=== PATIENT | male | born 1985 | race Caucasian/White ===

== ENCOUNTER 2024-12-07 10:45 | Outpatient (AMB) | payer OTHER, SELFPAY ==
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
[2024-12-07 10:59] VITALS: BP 100/68; PULSE 97; TEMP 36.6; O2SAT 98; BMI 33.2
--- OUTSIDE RECORDS SUMMARY | 2024-12-07 12:48 | XMS_ITS | Clinical Summary ---
Author Organization [employer] [facility] [address] Address [address] [place] [address] Phone Care Team Providers Care Inspector Floor Sub Assembly Name Role Phone Anisa Hazel MD Primary Care Prov ider Allergies No known active allergies Medications Trulicity 1.5 mg/0.5 mL pen injector injection ADMINISTER 1.5 MG UNDER THE SKIN EVERY WEEK 2 Active glipiZIDE (GLUCOTROL) 10 mg tablet 2 Active metFORMIN (GLUCOPHAGE) 850 mg tablet Take 1 tablet (850 mg total) by mouth 2 (two) times a day. 2 Active Surgical History Surgery Date Site/Laterality Comments CARPAL TUNNEL RELEASE 08/12/2013 - 08/11/2014 Left Medical History Medical History Date Comments Hypertension Diabetes mellitus ([facility] V24, [facility] V28) Social History Tobacco Use Types Packs/Day Years Used Date Smoking Tobacco: Never Smokeless Tobacco: Never Tobacco Cessation:Counseling Given: Not Answered Alcohol Use Standard Drinks/Week Comments Never 0 (1 standard drink = 0.6 oz pur e alcohol) Sex and Gender Information Value Date Recorded Sex Assigned at Not on file Legal Sex Male 10:21 PM EST Gender Identity Not on file Sexual Orientation Not on file Obstetrics History Last Filed Vital Signs Vital Sign Reading Time Taken Comments Blood Pressure - - Pulse - - Temperature - - Respiratory Rate 16 09/13/2022 10:12 AM EST Oxygen Saturation - - Inhaled Oxygen Concentration - - Weight 102 kg (225 lb) 09/13/2022 10:12 AM EST Height 170.2 cm (5' 7 ) 09/13/2022 10:12 AM EST Body Mass Index 35.24 09/13/2022 10:12 AM EST Plan of Treatment Health Maintenance Due Date Last Done Comments Pneumococcal Vaccine: Pediatrics (0 to 5 Years) and At-Risk Patients (6 to 64 Years) (1 of 2 - PCV) 2002 Cholesterol Screening (Lipid Panel) 07/14/2022 Depression Screening 07/14/2022 HIV Screening 07/14/2022 Hepatitis C Screening 07/14/2022 Social Influencers of Health Screening 07/14/2022 COVID-19 Vaccine (3 - season) 2024 08/09/2021, 12/28/2020 Influenza Vaccine (Season Ended) 2025 05/05/2022, 04/08/2021, 05/13/2018, Additional history exists DTaP,Tdap,and Td Vaccines (3 - Td or Tdap) 08/17/2027 08/17/2017, 07/16/2012 Hepatitis B Vaccines Completed 12/12/2012, 07/16/2012, 06/16/2012 HIB Vaccines Aged Out No longer eligi ble based on patient's age to complete this topic HPV Vaccines Aged Out No longer eligi ble based on patient's age to complete this topic Hepatitis A Vaccines Aged Out No long er eligible based on patient's age to complete this topic IPV Vaccines Aged Out No longer eligi ble based on patient's age to complete this topic MMR Vaccines Aged Out No longer eligi ble based on patient's age to complete this topic Meningococcal ACWY Vaccine Aged Out N o longer eligible based on patient's age to complete this topic Meningococcal B Vaccine Aged Out No l onger eligible based on patient's age to complete this topic RSV Immunization Patients Under 20 months Aged Out No longer eligible based on patient's age to complete this topic Varicella Vaccines Aged Out No longer eligible based on patient's age to complete this topic Insurance [employer] 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
== END 2024-12-07 11:43 | disposition home or self-care (01) ==
LOC: HO.HMCFM 10:46
PROVIDERS: PCP Physician Assistant Medical; Visit Provider Physician Assistant Medical
DX: E11.9 Type 2 diabetes mellitus without complications (principal); E78.5 Hyperlipidemia, unspecified; I10 Essential (primary) hypertension; G56.01 Carpal tunnel syndrome, right upper limb

== ENCOUNTER → 2024-12-07 10:45 | Outpatient (BNVA) | payer OTHER, SELFPAY | PROVIDERS: PCP Physician Assistant Medical; Visit Provider Physician Assistant Medical | DX: E11.65 Type 2 diabetes mellitus with hyperglycemia (principal); E11.649 Type 2 diabetes mellitus with hypoglycemia without coma; E78.5 Hyperlipidemia, unspecified; I10 Essential (primary) hypertension; G56.01 Carpal tunnel syndrome, right upper limb; Z98.890 Other specified postprocedural states | CPT/HCPCS: 83036; 96127; 99202 ==

== ENCOUNTER 2024-12-09 08:19 | Outpatient (AMB) | payer OTHER, SELFPAY ==
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
--- OUTSIDE RECORDS SUMMARY | 2024-12-09 08:34 | XMS_ITS | Clinical Summary ---
Author Organization [facility] [address] Address [address] [place] [address] Phone Care Team Providers Care Gas Pumper Name Role Phone Anisa Hazel MD Primary [...] Medical History Date Comments Hypertension Diabetes mellitus ([facility] V24, [facility] V28) Social History Tobacco Use Types Packs/Day [...] complete this topic Insurance AMBETTER Care Teams Gas Pumper Relationship Specialty Start Date End Date Anisa Hazel MD PCP - General Internal Medicine 04/16/17
--- OUTSIDE RECORDS SUMMARY | 2024-12-09 08:34 | XMS_ITS | Clinical Summary ---
Author Organization [facility] Address [address] [place] [address] Care Team Providers Care Jig Box Operator Name Role Phone Unknown Primary Care Provider [phone] Allergies No known active allergies Medications * This document contains information received from the source organization and may not represent a complete record from that organization. traZODone (DESYREL) 150 MG tablet Take 1 tablet by mouth nightly. 1 07/19/2017 Active Immunizations Immunization Administration Dates Next Due Tdap 08/17/2017 Social History Tobacco Use Types Packs/Day Years Used Date Smoking Tobacco: Never Assessed Sex and Gender Information Value Date Recorded Sex Assigned at Male 05/24/2020 2:11 AM EDT Legal Sex Male 1:28 AM EST Gender Identity Male 05/24/2020 2:11 AM EDT Sexual Orientation Heterosexual (straight) 05/24 2:11 AM EDT Last Filed Vital Signs Vital Sign Reading Time Taken Comments Blood Pressure 133/80 05/23/2020 10:22 PM EDT Pulse 102 05/23/2020 10:22 PM EDT Temperature 35.8 ??C (96.5 ??F) 05/23/2020 10:22 PM E DT Respiratory Rate 18 05/23/2020 10:22 PM EDT Oxygen Saturation 97% 05/23/2020 10:22 PM EDT Inhaled Oxygen Concentration - - Weight - - Height - - Body Mass Index - - Plan of Treatment Health Maintenance Due Date Last Done Comments Hepatitis C Virus Screening 1983 HIV Screening 1996 Hepatitis B Vaccines (1 of 3 - 19+ 3-dose series) 2002 Influenza Vaccine 03/12/2024 05/13/2018 COVID-19 Vaccine (2023-2 5 season) 2024 DTaP/Tdap/Td Vaccines (2 - T d or Tdap) 08/17/2027 08/17/2017 HPV Vaccines Aged Out No longer eligi ble based on patient's age to complete this topic Pneumococcal Vaccine: Pediat chuyita (0-5 Years) and At-Risk Patients (6 to 49 Years) Aged Out No longer eligible b ased on patient's age to complete this topic Insurance MEDICAID OUT OF STATE [facility] TPL (AUTO/LIABILITY) Care Teams Jig Box Operator Relationship Specialty Start Date End Date Unknown Unknow Provider Address PCP - General 05/23/20
--- NOTE | 2024-12-09 08:39 | A.OFFVIS_ITS ---
Vital Signs 12/09/24 08:40 Height 5 ft 6 in Weight 202 lb 13.204 oz BMI 32.7 BP 118/70 Blood Pressure Location Rt brachial Position Sitting Pulse 99 Pulse Source Pulse Oximeter Pulse Oximetry (%) 98 Oxygen Delivery Method Room Air Intake Visit Reasons: Diabetes Type 2 Intake Note: NEW Patient presents today to establish treatment for Type 2 Diabetes Mellitus: Last Diabetic eye exam was on: OVER DUE Last Podiatry exam was on: Patient does not see a Nuclear Powerplant Mechanic Helper Most recent HbA1c: 10.1%, 12/09/2024 Random Glucose- 293 mg/dL, Today Laundry Sorter Required: No Accompanied by: Mother Allergies jardiance Adverse Reaction (Intermediate, Uncoded 12/09/24 08:41) Vomiting Medication List - Last Reconciled 12/09/24 by Yelena Mujica MD atorvastatin 40 mg PO DAILY blood sugar diagnostic (FreeStyle Lite Strips) As directed to check glucose up to 3 times daily blood-glucose sensor (FreeStyle Otilia 3 Plus Sensor device) Apply 1 new sensor every 15 days as directed to monitor blood glucose continuously. blood-glucose,service center technician,cont (FreeStyle Otilia 3 [place]) Use daily to monitor blood glucose levels continuously. Dexcom G7 Roving Technician (blood-glucose,service center technician,cont) continuous NS Dexcom G7 Sensor (blood-glucose sensor) every 10 days NS dulaglutide (Trulicity) 1.5 mg (0.5 mL) subcut QWEEK glipizide orally 2 times daily; Take 10 mg qam and 5 mg in the evening with meals. glucose (Dex4 Glucose Quick Dissolve) 16 grams (4 x 4 gram) PO Q15M PRN lancets (FreeStyle Lancets) Use to monitor blood glucose 3 times daily. lisinopril 5 mg PO DAILY metformin 850 mg PO BID HPI Comments Details: This is a 39-year-old male presenting for consultation for uncontrolled type 2 diabetes. Medical history: obesity, type 2 diabetes, hyperlipidemia, hypertension Diagnosed in 2020. POC hemoglobin A1c today is 10.1%. Patient with traditional glucometer-did not bring today Current medications: He saw his pcp two days ago at which time Glipizide was inreased to 10mg am and 5mg pm (from 5 mg twice daily), trulicity 1.5mg weekly was restarted, and he continued on metformin 850 mg twice a day. Previous medications: He was previously on Invokana, but he ran out of this over 3 months ago. Metformin extended release caused GI upset. He is overdue for an eye exam-referral is in place Patient reports very mild peripheral neuropathy. He has a history of CTS Hypertension- treated with lisinopril 5 mg daily. Hyperlipidemia-treated with atorvastatin 40 mg daily. ROS CONSTITUTIONAL: Denies weight loss, fever and chills. HEENT: Denies changes in vision and hearing. RESPIRATORY: Denies SOB and cough. CV: Denies palpitations and CP GI: Denies abdominal pain, nausea, vomiting and diarrhea. : Denies dysuria and urinary frequency. MSK: Denies new myalgia and joint pain. SKIN: Denies rash and pruritus. NEUROLOGICAL: Denies headache PSYCHIATRIC: Denies recent changes in mood. PHYSICAL EXAM: GENERAL: Alert and oriented x 3. NAD EYES: EOMI. Anicteric. HENT: Moist mucous membranes. No scleral icterus. No cervical lymphadenopathy. LUNGS: Clear to auscultation bilaterally. CARDIOVASCULAR: Regular rate and rhythm. No murmur. No JVD. ABDOMEN: Soft, non-tender +bs EXTREMITIES: No edema. Non-tender. SKIN: No rashes or lesions. Warm. NEUROLOGIC: No focal neurological deficits. CN II-XII grossly intact PSYCHIATRIC: Cooperative. Appropriate mood and affect [facility] Medical History Obesity, class 1 Right carpal tunnel syndrome Essential hypertension Hyperlipidemia Type II diabetes mellitus Surgical History History of carpal tunnel surgery of left wrist Family History Maternal Grandmother Hypertension Hyperlipemia Diabetes History of kidney cancer Maternal Grandfather Hypertension Hyperlipemia Diabetes Social History Housing: House Alcohol intake: never Patient Tobacco Use Status: Never used Tobacco e-Cigarette/Vaping Use: Never Used Second Hand Smoke Exposure: No service: No Current occupational status: employed Current occupation: [employer] Current occupational exposures/hazards: No Cognitive needs: No Vision needs: No Physical Exam Vital Signs: BMI result Body Mass Index 32.7 Results AMB Hemoglobin A1c AMB Hemoglobin A1c 10.1 % Last Edit by YULIYA Garcia on 12/09/24 09:0 0 Assessment & Plan Assessment & Plan (1) Type II diabetes mellitus: Code(s): E11.9 - Type 2 diabetes mellitus without complications Category: Medical Qualifiers: Diabetes mellitus complication status: with hyperglycemia Diabetes mellitus medical terminologist insulin use: without fdc use Qualified Code(s): E11.65 - Type 2 diabetes mellitus with hyperglycemia (2) Hyperlipidemia: Code(s): E78.5 - Hyperlipidemia, unspecified Category: Medical Qualifiers: Hyperlipidemia type: unspecified Qualified Code(s): E78.5 - Hyperlipidemia, unspecified (3) Essential hypertension: Code(s): I10 - Essential (primary) hypertension Category: Medical Plan Uncontrolled diabetes He received the trulicity and has restarted this He increased his glipizide Stress importance of bringing glucometer to visit He has PA for CGM but discussed this might not be covered with lack of insulin use He has an appt with senior front end developer in place and a referral for an eye visit pending Orders: Orders AMB Hemoglobin A1c Today E11.9 - Type 2 diabetes mellitus without complications Glutamic acid decarboxylase Ab 3 Months E11.9 - Type 2 diabetes mellitus wit hout complications Medications: New Dexcom G7 Roving Technician (blood-glucose,service center technician,cont) continuous 1 ea 3RF NS E11.9 - Type 2 diabetes mellitus without complications Dexcom G7 Sensor (blood-glucose sensor) every 10 days 9 ea 3RF NS E11.9 - Type 2 diabetes mellitus without complications Coding Level of Care Code Est Pt Level 4 (41101) Complex EM visit Add On G2211 Diagnoses Type 2 diabetes mellitus with hyperglycemia, without long-term current use of insulin E11.65 Diabetes mellitus complication status: with hyperglycemia Diabetes mellitus medical terminologist insulin use: without fdc use Hyperlipidemia, unspecified hyperlipidemia type E78.5 Hyperlipidemia type: unspecified Essential hypertension I10
[2024-12-09 08:40] VITALS: BP 118/70; PULSE 99; O2SAT 98; BMI 32.7
[2024-12-09 08:53] LABS: Glucose, Whole Blood 293 mg/dL (60-115)
== END 2024-12-09 09:11 | disposition home or self-care (01) ==
LOC: HO.ENCR 08:20
PROVIDERS: PCP Physician Assistant Medical; Visit Provider Internal Medicine
DX: E11.65 Type 2 diabetes mellitus with hyperglycemia (principal); E78.5 Hyperlipidemia, unspecified; I10 Essential (primary) hypertension; E11.9 Type 2 diabetes mellitus without complications

== ENCOUNTER → 2024-12-09 08:19 | Outpatient (BNVA) | payer OTHER, SELFPAY | PROVIDERS: PCP Physician Assistant Medical; Visit Provider Internal Medicine | DX: E11.65 Type 2 diabetes mellitus with hyperglycemia (principal); E78.5 Hyperlipidemia, unspecified; I10 Essential (primary) hypertension | CPT/HCPCS: 82947; 83036; 99212 ==

== ENCOUNTER 2024-12-11 11:21 | Outpatient (REF) | payer OTHER, SELFPAY ==
[2024-12-11 16:53] LABS: Influenza A PCR NEGATIVE (Negative); Influenza B PCR NEGATIVE (Negative); Resp Syncy Virus RNA Qual PCR NEGATIVE (Negative); SARS COV2 PCR INHOUSE NEGATIVE (Negative)
== END 2024-12-11 11:22 | disposition home or self-care (01) ==
LOC: HO.LNP 11:21
PROVIDERS: Nurse Practitioner Family; PCP Physician Assistant Medical; Visit Provider Physician Assistant
DX: J06.9 Acute upper respiratory infection, unspecified (principal); R07.9 Chest pain, unspecified
CPT/HCPCS: 0241U; 93005; 99212

== ENCOUNTER 2024-12-11 11:21 | Outpatient (AMB) | payer OTHER, SELFPAY ==
--- NOTE | 2024-12-11 11:37 | AM.OFFVISNUR ---
Intake Visit Reasons: EP-nauseas, loss of appetited, chest pain Allergies jardiance Adverse Reaction (Intermediate, Uncoded 12/09/24 08:41) Vomiting Nursing Note Pt came into the [facility]. C/o nausea, headache, loss of appetite, fatique and intermittent chest pain x yesterday. Pt stated that he takes medication Glipizide b.i.d and it was increase to t.i.d which he started taking on Saturday. Pt speaks in full sentences. Skin pink warm and dry. Vs 130/91(left)-107-100% on room air. MA - (Ceira) aware. Coding
--- OUTSIDE RECORDS SUMMARY | 2024-12-11 12:22 | XMS_ITS | Clinical Summary ---
Author Organization [facility] Address [address] [place] [address] Care Team Providers Care Credit Products Officer Name Role Phone Unknown Primary Care Provider [phone] Allergies No known active allergies Medications * [...] of 3 - 19+ 3-dose series) 2002 COVID-19 Vaccine (2023-2 5 season) 2024 Influenza Vaccine 03/12/2025 05/13/2018 DTaP/Tdap/Td Vaccines (2 - T d or Tdap) 08/17/2027 08/17/2017 HPV Vaccines Aged Out No longer eligi ble based on patient's age to complete this topic Pneumococcal Vaccine: Pediat chuyita (0-5 Years) and At-Risk Patients (6 to 49 Years) Aged Out No longer eligible b ased on patient's age to complete this topic Insurance MEDICAID OUT OF STATE [facility] [place] (AUTO/LIABILITY) Care Teams Credit Products Officer Relationship Specialty Start Date End Date Unknown Unknow Provider Address PCP - General 05/23/20
--- OUTSIDE RECORDS SUMMARY | 2024-12-11 12:22 | XMS_ITS | Clinical Summary ---
Author Organization [email or web address] Address [address] [place] [address] Phone Care Team Providers Care Civil Technician Name Role Phone Anisa Hazel MD Primary [...] Medical History Date Comments Hypertension Diabetes mellitus ([facility] V24, [facility] V28) Social History Tobacco Use Types [...] complete this topic Insurance AMBETTER Care Teams Civil Technician Relationship Specialty Start Date End Date Anisa Hazel MD PCP - General Internal Medicine 04/16/17
[2024-12-11 12:42] VITALS: BP 118/76; PULSE 98; O2SAT 98
--- NOTE | 2024-12-11 12:42 | AM.OFFWIN_ITS ---
Intake Vital Signs 12/11/24 12:42 Weight 203 lb BP 118/76 Blood Pressure Location Lt brachial Position Sitting Pulse 98 Pulse Source Pulse Oximeter Pulse Oximetry (%) 98 Oxygen Delivery Method Room Air Intake Visit Reasons: EP-nauseas, loss of appetited, chest pain Patient Tobacco Use Status: Never used Tobacco Allergies jardiance Adverse Reaction (Intermediate, Uncoded 12/09/24 08:41) Vomiting HPI HPI Comments History of Present Illness Details History of Present Illness - The patient is a 39-year-old male pres enting with acute onset of chest pain, nausea and vomiting following a dose increase in glipizide 5 days ago. He went from 5mg twice a day to 10mg in the AM and 5mg in the PM. - Chest pain, described as episodes of t ightness and sharp pains, radiates to his back and persists both day and night. Nothing makes it better or worse. - Gastrointestinal symptoms include pers istent nausea, fatigue, a notable episode of vomiting yesterday, and acute lower abdominal pain without diarrhea. Denies fevers but had one episode of sweating last night. - Despite increased abdominal discomfort , the patient reports normal bowel movements and denies fever or skin rashes. - There is a family history of cardiac i ssues, though the patient has no personal cardiac history beyond a benign childhood heart murmur. - No accompanying shortness of breath, w heezing, or other pulmonary symptoms were noted. Physical Exam General: Cooperative, healthy appearing, comfortable, no acute distress and well developed Orientation: Patient oriented x3 Limitations: No limitations Head: Normal to inspection Ears: Hearing grossly normal bilaterally Nose: Normal External nose present Face and sinus: Normal facial exam Eyes: Appearance normal, both eyes and all related structures Neck: Normal visual inspection and Yes full ROM Respiratory: Normal respiratory effort and able to speak in complete sentences. Clear to auscultation bilaterally Cardiovascular: Regular rate and rhythm. Normal S1 and S2. Skin: No rashes or lesions noted Neuro: Patient oriented x3 Extremities: Normal to inspection [facility] Medical History Obesity, class 1 Right carpal tunnel syndrome Essential hypertension Hyperlipidemia Type II diabetes mellitus Surgical History History of carpal tunnel surgery of left wrist Family History Maternal Grandmother Hypertension Hyperlipemia Diabetes History of kidney cancer Maternal Grandfather Hypertension Hyperlipemia Diabetes Social History Housing: House Alcohol intake: never Patient Tobacco Use Status: Never used Tobacco e-Cigarette/Vaping Use: Never Used Second Hand Smoke Exposure: No service: No Current occupational status: employed Current occupation: [employer] Current occupational exposures/hazards: No Cognitive needs: No Vision needs: No Review of Systems Const All systems reviewed & are unremarkable except as noted in HPI and below Physical Exam Vital Signs: Last Vital Signs Pulse 98 12/11/24 12:42 BP 118/76 12/11/24 12:42 Pulse Ox 98 12/11/24 12:42 Oxygen Delivery Method Room Air 12/11/24 12:42 Office Procedures EKG Details: sinus tachycardia @103BPM, no acute changes. 52221-Olndwxmjmzybwdrtq, Complete Assessment & Plan Assessment & Plan (1) Chest pain: Code(s): R07.9 - Chest pain, unspecified Qualifiers: Chest pain type: unspecified Qualified Code(s): R07.9 - Chest pain, unspecified Plan: VSS, pt well appearing and PE unremarkable. EKG sinus tachycardia at 103BPM, no acute changes, no prior. In addressing the patient's acute presentation of chest pain which radiates to his back, nausea vomiting an episode of sweating, a comprehensive strategy involving immediate cardiac evaluation is necessary. Given the nature of the symptoms and the risk factors involved, referral to the emergency room is planned for further detailed assessment, including potential imaging and cardiac monitoring, to exclude acute coronary syndrome or other cardiac pathology. The patient's increased dosage of glipizide is monitored closely to assess for any causal relationship with symptoms, albeit considered a less likely contributor to the nocturnal chest pain episodes. Patient declined an ambulance, he is having a friend pick him up and drive him to the [facility] Emergency Department. His vitals are stable and he is well-appearing in the EKG is reassuring so I am comfortable with this plan. I did call the [facility] ED triage provider with [facility], spoke with Jose Luis at 13:05. Patient was informed and verbally consented to the use of an ambient scribe for clinic note documentation during this visit. Orders: Orders SARS-CoV2/FLU/RSV Today J06.9 - Acute upper respiratory infection, unspecified Medications: Discontinued dulaglutide (Trulicity) Discontinued Reason: Doctor's Order 1.5 mg (0.5 mL) subcut QWEEK 2 mL 3RF Coding Level of Care Code Est Pt Level 5 (72709) Diagnoses Chest pain, unspecified type R07.9 Chest pain type: unspecified CPT Codes EKG - CPT: 87084-Tmcuszsgwesmammuz, Complete ([id number])
== END 2024-12-11 13:34 | disposition home or self-care (01) ==
PROVIDERS: PCP Physician Assistant Medical; Visit Provider Physician Assistant
DX: R07.9 Chest pain, unspecified (principal)

== ENCOUNTER 2024-12-23 07:31 | Outpatient (REF) | payer OTHER, SELFPAY ==
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
--- OUTSIDE RECORDS SUMMARY | 2024-12-23 07:33 | XMS_ITS | Clinical Summary ---
Author Organization [facility] Address [address] [place] [address] Care Team Providers Care Corrections Corporal Name Role Phone Unknown Primary Care Provider [phone] Allergies No known active allergies Medications * [...] this topic Insurance MEDICAID OUT OF STATE [facility] (AUTO/LIABILITY) Care Teams Corrections Corporal Relationship Specialty Start Date End Date Unknown Unknow Provider Address PCP - General 05/23/20
--- OUTSIDE RECORDS SUMMARY | 2024-12-23 07:33 | XMS_ITS | Clinical Summary ---
[facility] Organization [facility] [address] [facility] Address [address] [place] [address] Phone Care Team Providers Care Superintendent Logging Name Role Phone Anisa Hazel MD Primary [...] Medical History Date Comments Hypertension Diabetes mellitus ([facility] V24, [facility] V28) Social History Tobacco Use Types Packs/Day [...] complete this topic Insurance AMBETTER Care Teams Superintendent Logging Relationship Specialty Start Date End Date Anisa Hazel MD PCP - General Internal Medicine 04/16/17
[2024-12-23 11:05] LABS: Hematocrit 43.4 % (42.0-52.0); Mean Corpuscular HGB Conc 34.6 g/dl (31.0-36.0); Mean Corpuscular Hemoglobin 29.5 pg (27.0-33.0); Mean Corpuscular Volume 85.3 fL (80.0-98.0); Mean Platelet Volume 9.6 fL (9.4-12.4); Platelet Count 375 X10*3/uL (160-400); Red Blood Count 5.09 X10*6/uL (4.60-5.80); Red Cell Distribution Width 11.8 % (11.0-16.0)
[2024-12-23 11:31] LABS: Creatinine Urine 471.64 mg/dL; Microalbum/Creatinine Ratio Ur 8.9 ug/mg cr (<30)
[2024-12-23 11:42] LABS: Alanine Aminotransferase 17 U/L (0-40); Albumin Level 4.2 g/dL (3.5-5.0); Alkaline Phosphatase 105 U/L (39-117); Anion Gap 14 (12-20); Aspartate Amino Transferase 22 U/L (5-37); Bilirubin Total 0.4 mg/dL (0.0-1.0); Blood Urea Nitrogen 12 mg/dL (9-16); Calcium 9.3 mg/dL (8.4-10.2); Carbon Dioxide 24 mmol/L (22-29); Chloride 105 mmol/L (96-108); Cholesterol 116 mg/dL (<200); Estimated Glomerular Filt Rate > 60; Glucose Random 194 mg/dL (60-115); HDL Cholesterol 43 mg/dL (>40); LDL Cholesterol Calculated 47 mg/dL (<100); Potassium 4.2 mmol/L (3.3-5.1); Sodium 139 mmol/L (135-145); Triglycerides 133 mg/dL (<150)
[2024-12-23 11:44] LABS: TSH reflex Free T4 1.42 uIU/mL (0.32-4.0)
[2024-12-23 11:48] LABS: Prostate Specific Antigen 0.73 ng/mL (<0.05-4.0); Vitamin B12 236 pg/mL (200-900)
== END 2024-12-23 07:32 | disposition home or self-care (01) ==
LOC: HO.WFDLDS 07:31
PROVIDERS: Visit Provider Physician Assistant Medical
DX: E11.9 Type 2 diabetes mellitus without complications (principal); E78.5 Hyperlipidemia, unspecified; I10 Essential (primary) hypertension; Z91.89 Other specified personal risk factors, not elsewhere classified; Z12.5 Encounter for screening for malignant neoplasm of prostate
CPT/HCPCS: 36415; 80053; 80061; 82043; 82570; 82607; 84153; 84443; 85027

== ENCOUNTER 2025-03-23 07:56 | Outpatient (AMB) | payer OTHER, SELFPAY ==
--- NOTE | 2025-03-23 07:59 | MHC.OFFWIV ---
Intake Vital Signs 03/23/25 08:00 Height 5 ft 6 in Weight 202 lb BMI 32.6 BP 114/76 Blood Pressure Location Lt brachial Position Sitting Pulse 99 Pulse Source Pulse Oximeter Temp 97.6 F Temp Source Oral Pulse Oximetry (%) 99 Oxygen Delivery Method Room Air Intake Visit Reasons: EP Pain in RT wrist Intake Note: presents with right wrist pain. pt reports h/o CTS Patient Tobacco Use Status: Never used Tobacco Allergies empagliflozin (From Jardiance) Adverse Reaction (Intermediate, Verified 03/23/25 08:03) Vomiting Do you need a note to return to daycare/school/sports/work: Yes HPI HPI Comments History of Present Illness Details History of Present Illness - The patient is a 39-year-old male presenting with bilateral wrist pain. - Right wrist pain is worse than the left. - Previous left wrist repair by [facility]. - Pain worsened over the last week on the right wrist. 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 - Ibuprofen taken without relief, he has a wrist brace available. Physical Exam General: Cooperative, healthy appearing, comfortable, no acute distress and well developed Orientation: Patient oriented x3 Limitations: none Head: Normal to inspection Ears: Hearing grossly normal bilaterally Nose: Normal External nose present Face and sinus: Normal facial exam Eyes: Appearance normal, both eyes and all related structures Neck: Normal visual inspection and Yes full ROM Respiratory: Normal respiratory effort and able to speak in complete sentences. Skin: No rashes or lesions noted Neuro: Patient oriented x3 Extremities: Right wrist Positive Tinel's, positive Phalen's test, full ROM, NVI; bilateral UE normal to inspection [facility] Medical History Obesity, class 1 Right carpal tunnel syndrome Essential hypertension Hyperlipidemia Type II diabetes mellitus Surgical History History of carpal tunnel surgery of left wrist Family History Maternal Grandmother Hypertension Hyperlipemia Diabetes History of kidney cancer Maternal Grandfather Hypertension Hyperlipemia Diabetes Social History Housing: House Alcohol intake: never Patient Tobacco Use Status: Never used Tobacco e-Cigarette/Vaping Use: Never Used Second Hand Smoke Exposure: No service: No Current occupational status: employed Current occupation: [employer] Current occupational exposures/hazards: No Cognitive needs: No Vision needs: No Review of Systems Const All systems reviewed & are unremarkable except as noted in HPI and below Physical Exam Vital Signs: Last Vital Signs Temp 97.6 F 03/23/25 08:00 Pulse 99 03/23/25 08:00 BP 114/76 03/23/25 08:00 Pulse Ox 99 03/23/25 08:00 Oxygen Delivery Method Room Air 03/23/25 08:00 BMI result Body Mass Index 32.6 Assessment & Plan Assessment & Plan (1) Right carpal tunnel syndrome: Code(s): G56.01 - Carpal tunnel syndrome, right upper limb Plan: Plan - Prescribe meloxicam for pain management. - Recommend use of wrist brace to support the wrist. - Advise range of motion exercises to maintain mobility. - Suggest taking time off work to rest the wrist. - Follow-up with [facility] for further evaluation of the right wrist, referral was put in back in November, gave him a copy to facilitate the appt. Patient was informed and verbally consented to the use of an ambient scribe for clinic note documentation during this visit. Medications: New meloxicam 15 mg PO DAILY PRN 15 tabs 0RF pain, moderate Coding Level of Care Code Est Pt Level 3 (38374) Diagnoses Right carpal tunnel syndrome G56.01
--- OUTSIDE RECORDS SUMMARY | 2025-03-23 07:59 | XMS_ITS | Clinical Summary ---
Author Organization [facility] [address] Address [address] [place] [address] Phone Care Team Providers Care Architecture Department Chair Name Role Phone Anisa Hazel MD Primary [...] Medical History Date Comments Hypertension Diabetes mellitus ([facility] V24, [facility] V28) Social History Tobacco Use Types [...] 5 Years) and At-Risk Patients (6 to 49 Years) (1 of 2 - PCV) 2002 Cholesterol Screening (Lipid Panel) 07/14/2022 HIV Screening 07/14/2022 Hepatitis C Screening 07/14/2022 Social Influencers of Health Screening 07/14/2022 COVID-19 Vaccine (3 - season) 2024 08/09/2021, 12/28/2020 Depression Screening 08/12/2024 Influenza Vaccine (#1) 2025 2, 04/08/2021, 05/13/2018, Additional history exists DTaP,Tdap,and Td [...] complete this topic Insurance AMBETTER Care Teams Architecture Department Chair Relationship Specialty Start Date End Date Anisa Hazel MD PCP - General Internal Medicine 04/16/17
--- OUTSIDE RECORDS SUMMARY | 2025-03-23 07:59 | XMS_ITS | Clinical Summary ---
Author Organization [facility] Address [address] [place] [address] Care Team Providers Care Wireless Sales Representative Name Role Phone Unknown Primary Care Provider [phone] Allergies No known active allergies Medications * [...] 102 05/23/2020 10:22 PM EDT Temperature 35.8 C (96.5 F) 05/23/2020 10:22 PM EDT Respiratory Rate 18 05/23/2020 10:22 PM EDT Oxygen Saturation 97% 05/23/2020 10:22 PM EDT Inhaled Oxygen Concentration - - Weight - - Height - - Body Mass Index - - Plan of Treatment Health Maintenance Due Date Last Done Comments Hepatitis C Virus Screening 1983 HIV Screening 1996 Hepatitis B Vaccines (1 of 3 - 19+ 3-dose series) 2002 HPV Vaccines (1 - 3-dose SCD M series) 2010 COVID-19 Vaccine (2023-2 5 season) 2024 Influenza Vaccine 03/12/2025 05/13/2018 DTaP/Tdap/Td Vaccines (2 - T d or Tdap) 08/17/2027 08/17/2017 Pneumococcal Vaccine: Pediat chuyita (0-5 Years) and At-Risk Patients (6 to 49 Years) Aged Out No longer eligible b ased on patient's age to complete this topic Insurance MEDICAID OUT OF STATE [facility] (AUTO/LIABILITY) Care Teams Wireless Sales Representative Relationship Specialty Start Date End Date Unknown Unknow Provider Address PCP - General 05/23/20
[2025-03-23 08:00] VITALS: BP 114/76; PULSE 99; TEMP 36.4; O2SAT 99; BMI 32.6
== END 2025-03-23 08:23 | disposition home or self-care (01) ==
PROVIDERS: PCP Physician Assistant Medical; Visit Provider Physician Assistant
DX: G56.01 Carpal tunnel syndrome, right upper limb (principal)

== ENCOUNTER → 2025-03-23 07:56 | Outpatient (BNVA) | payer OTHER, SELFPAY | PROVIDERS: PCP Physician Assistant Medical; Visit Provider Physician Assistant | DX: G56.01 Carpal tunnel syndrome, right upper limb (principal); M25.532 Pain in left wrist | CPT/HCPCS: 99212 ==

== ENCOUNTER 2025-07-22 10:45 | Outpatient (AMB) | payer OTHER, SELFPAY ==
--- NOTE | 2025-07-22 10:48 | A.OFFVIS_ITS ---
Vital Signs 07/22/25 10:49 Height 5 ft 6 in Weight 194 lb 0.108 oz BMI 31.3 BP 118/72 Blood Pressure Location Rt brachial Position Sitting Pulse 91 Pulse Source Pulse Oximeter Pulse Oximetry (%) 98 Oxygen Delivery Method Room Air Intake Visit Reasons: TD2M Intake Note: Patient presents today for a follow-up on Type 2 Diabetes Mellitus: Last Diabetic eye exam was on: Couple of months ago, 2024 Last Podiatry exam was on: Patient does not see a Cardiothoracic Surgeon Most recent HbA1c: 10.9%, 07/22/2025 Random Glucose- 274 mg/dL, Today Physician Non Invasive Cardiologist Required: No Accompanied by: Self / Same As Patient Allergies empagliflozin (From Jardiance) Adverse Reaction (Intermediate, Verified 07/22/25 10:55) Vomiting HPI Comments Details: This is a 39-year-old male presenting for follow up uncontrolled type 2 diabetes. He has not bee seen since November Medical history: obesity, type 2 diabetes, hyperlipidemia, hypertension Diagnosed in 2019. PCP: Christy Hayden-overdue but upcoming visit Current medications: Glipizide 15mg daily trulicity 0.75 weekly metformin 850 mg twice a day. Previous medications: He was previously on Invokana, but he ran out of this over 3 months ago. Metformin extended release caused GI upset. POC hemoglobin A1c today is 10.9 from 10.1%. Patient with traditional glucometer-does not check. He notes he is compliant with medications He is overdue for an eye exam-referral is in place Patient reports very mild peripheral neuropathy. He has a history of CTS Hypertension- treated with lisinopril 5 mg daily. Hyperlipidemia-treated with atorvastatin 40 mg daily. ROS CONSTITUTIONAL: Denies weight loss, fever and chills. HEENT: Denies changes in vision and hearing. RESPIRATORY: Denies SOB and cough. CV: Denies palpitations and CP GI: Denies abdominal pain, nausea, vomiting and diarrhea. : Denies dysuria and urinary frequency. MSK: Denies new myalgia and joint pain. SKIN: Denies rash and pruritus. NEUROLOGICAL: Denies headache PSYCHIATRIC: Denies recent changes in mood. PHYSICAL EXAM: GENERAL: Alert and oriented x 3. NAD EYES: EOMI. Anicteric. HENT: Moist mucous membranes. No scleral icterus. No cervical lymphadenopathy. LUNGS: Clear to auscultation bilaterally. CARDIOVASCULAR: Regular rate and rhythm. No murmur. No JVD. ABDOMEN: Soft, non-tender +bs EXTREMITIES: No edema. Non-tender. SKIN: No rashes or lesions. Warm. NEUROLOGIC: No focal neurological deficits. CN II-XII grossly intact PSYCHIATRIC: Cooperative. Appropriate mood and affect [facility] Medical History Obesity, class 1 Right carpal tunnel syndrome Essential hypertension Hyperlipidemia Type II diabetes mellitus Surgical History History of carpal tunnel surgery of left wrist Family History Maternal Grandmother Hypertension Hyperlipemia Diabetes History of kidney cancer Maternal Grandfather Hypertension Hyperlipemia Diabetes Social History Housing: House Alcohol intake: never Patient Tobacco Use Status: Never used Tobacco e-Cigarette/Vaping Use: Never Used Second Hand Smoke Exposure: No service: No Current occupational status: employed Current occupation: [employer] Current occupational exposures/hazards: No Cognitive needs: No Vision needs: No Physical Exam Vital Signs: Last Vital Signs Pulse 91 07/22/25 10:49 BP 118/72 07/22/25 10:49 Pulse Ox 98 07/22/25 10:49 Oxygen Delivery Method Room Air 07/22/25 10:49 BMI result Body Mass Index 31.3 Results AMB Hemoglobin A1c AMB Hemoglobin A1c 10.9 % Last Edit by YULIYA Garcia on 07/22/25 11:0 2 Results Reviewed Results Reviewed: Laboratory Last Values Glucose (Clinic) 274 mg/dL (60-115) H 07/22/25 10:52 Assessment & Plan Assessment & Plan (1) Type II diabetes mellitus: Code(s): E11.9 - Type 2 diabetes mellitus without complications Category: Medical Qualifiers: Diabetes mellitus longterm insulin use: without horse show manager use Diabetes mellitus complication status: with hyperglycemia Qualified Code(s): E11.65 - Type 2 diabetes mellitus with hyperglycemia (2) Long-term insulin use: Code(s): Z79.4 - skilled nursing (current) use of insulin Category: Medical Plan 39 year old for diabetic follow up Uncontrolled. Start lantus 10 units nightly, increase trulicity to 1.5 weekly, continue metformin and stop glipizide. Initiate CGM. Patient has used one in the past. He has follow up in one week with PCP and will have him return here in 3 weeks for review of CGM and med adjustments prn Treat hypoglycemia by rules of 15s Orders: Orders AMB Hemoglobin A1c Today E11.65 - Type 2 diabetes mellitus with hyperglycemia Medications: New pen needle, diabetic (1st Tier Unifine Pentips Plus) once daily 100 ea 0RF E11.65 - Type 2 diabetes mellitus with hyperglycemia, Z79.4 - skilled nursing (current) use of insulin dulaglutide (Trulicity) 1.5 mg (0.5 mL) subcut QWEEK 2 mL 3RF E11.65 - Type 2 diabetes mellitus with hyperglycemia insulin glargine (Lantus Solostar U-100 Insulin) 10 units (0.1 mL) subcut QPM 15 mL 3RF E11.65 - Type 2 diabetes mellitus with hyperglycemia Refilled Dexcom G7 Sensor (blood-glucose sensor) every 10 days 9 ea 3RF NS E11.65 - Type 2 diabetes mellitus with hyperglycemia, Z79.4 - filing and polishing 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 (current) use of insulin metformin 850 mg PO BID 180 tabs 3RF Discontinued glipizide Discontinued Reason: Doctor's Order orally 2 times a day; 2 tabs in the morning and 1 in the evening with meals 270 ea 0RF dulaglutide (Trulicity) Discontinued Reason: Doctor's Order 0.75 mg (0.5 mL) subcut QWEEK 2 mL 0RF Coding Level of Care Code Est Pt Level 4 (17211) Diagnoses Type 2 diabetes mellitus with hyperglycemia, without long-term current use of insulin E11.65 Diabetes mellitus horse show manager insulin use: without horse show manager use Diabetes mellitus complication status: with hyperglycemia Long-term insulin use Z79.4
[2025-07-22 10:49] VITALS: BP 118/72; PULSE 91; O2SAT 98; BMI 31.3
[2025-07-22 10:56] LABS: Glucose, Whole Blood 274 mg/dL (60-115)
== END 2025-07-22 11:14 | disposition home or self-care (01) ==
LOC: HO.ENCR 10:46
PROVIDERS: PCP Physician Assistant Medical; Visit Provider Internal Medicine
DX: E11.65 Type 2 diabetes mellitus with hyperglycemia (principal); Z79.4 Long term (current) use of insulin

== ENCOUNTER → 2025-07-22 10:45 | Outpatient (BNVA) | payer OTHER, SELFPAY | PROVIDERS: PCP Physician Assistant Medical; Visit Provider Internal Medicine | DX: E11.65 Type 2 diabetes mellitus with hyperglycemia (principal); Z79.4 Long term (current) use of insulin | CPT/HCPCS: 82947; 83036; 99212 ==

== ENCOUNTER 2025-07-29 08:07 | Outpatient (REF) | payer OTHER, SELFPAY ==
[2025-07-29 12:18] LABS: Alanine Aminotransferase 11 U/L (0-40); Albumin Level 4.4 g/dL (3.5-5.0); Alkaline Phosphatase 129 U/L (39-117); Anion Gap 12 (12-20); Aspartate Amino Transferase 19 U/L (5-37); Blood Urea Nitrogen 10 mg/dL (9-16); Calcium 8.8 mg/dL (8.4-10.2); Carbon Dioxide 25 mmol/L (22-29); Chloride 102 mmol/L (96-108); Estimated Glomerular Filt Rate > 60; Potassium 3.9 mmol/L (3.3-5.1); Sodium 135 mmol/L (135-145); Total Protein 6.9 g/dL (6.5-8.0)
[2025-07-29 12:23] LABS: Vitamin B12 190 pg/mL (200-900)
== END 2025-07-29 08:08 | disposition home or self-care (01) ==
LOC: HO.WFDLDS 08:07
PROVIDERS: PCP Physician Assistant Medical; Visit Provider Physician Assistant Medical
DX: Z00.00 Encounter for general adult medical examination without abnormal findings (principal); I10 Essential (primary) hypertension; E11.65 Type 2 diabetes mellitus with hyperglycemia; Z91.89 Other specified personal risk factors, not elsewhere classified; E78.5 Hyperlipidemia, unspecified; R93.429 Abnormal radiologic findings on diagnostic imaging of unspecified kidney; F41.9 Anxiety disorder, unspecified; F32.A Depression, unspecified; S39.92XA Unspecified injury of lower back, initial encounter
CPT/HCPCS: 36415; 80053; 82607; 84443; 90471; 90472; 90656; 90715; 96127; 99396

== ENCOUNTER 2025-07-29 08:07 | Outpatient (AMB) | payer OTHER, SELFPAY ==
--- OUTSIDE RECORDS SUMMARY | 2025-07-29 08:11 | XMS_ITS | Continuity of Care Document ---
Author Organization [place] - [facility], [place] Address [address] [place] [address] Care Team Providers Care Bacteriologist Industrial Name Role Phone OLEGARIO CASTELLANOS Supervisor Bindery Assessment Encounter Date Assessment Date Assessment LastModified by Organization Details LastModified Time 07/06/2025 07/06/2025 Urgent Care Visit I am seeing the patient today under the supervision of Dr. Rich who was available but who did not see the patient. Chief Complaint: midback pain Date of injury: 1 week ago HPI: The patient has been dealing with mid back and left scapular pain over the past week after having a fall where he fell directly onto his entire back with his arms overhead. He feels as if he has some difficulty with overhead motions along the medial scapular border on the left side. He denies any numbness or tingling or paresthesias. No bruising or swelling was noticed. No difficulty breathing. Past family, medical, social history and review of systems has been reviewed, updated and signed by me and is located in the patient's chart. Examination: The patient is well appearing and in no apparent distress. Alert and oriented x3. Left shoulder and thoracic spine: Visual inspection reveals no erythema, swelling, ecchymoses or atrophy about the shoulder/scapular region. Tenderness to palpation was felt along rhomboid muscles with no bony tenderness along the thoracic spine. Active range of motion in forward flexion = 175 , abduction = 175 , external rotation = 75 , internal rotation to thoracolumbar junction. No external rotation lag. 5 out of 5 strength with supraprinatus and infraspinatus testing. Negative impingement arc. Negative cross body abduction. Negative O'Briens. Negative Chapis. Negative belly press. Negative apprehension. Neurovascularly intact. X-rays ordered, obtained and reviewed at [facility]: 2 views of the thoracic spine reveal no acute fracture or dislocation. Well-maintained vertebral height. No significant listhesis. Normal kyphotic curve. Minimal if any degenerative changes. Impression: Rhomboid muscle strain, left shoulder Plan: I explained the nature of the diagnosis with the patient and its treatment options both conservative and surgical. Provided the patient with a home exercise program and an anti-inflammatory. I do believe that he will benefit over the next several weeks from this. If he were no better in approximately 1 month I would recommend further evaluation and follow-up with potential formal physical therapy prescription. He will contact the office for such if necessary. The patient understands and agrees with the plan. They know to call if they have any further questions or concerns regarding their symptoms, or to follow up sooner if needed. [email or web address] Not available 07/06/2025 12:38:09 Plan of Treatment Reminders Order Date Submit Date Provider Last Modified By Organization Details Last Modified Time Details Appointments NEW PATIENT 15 2025 01:45P M Danielle Kemp PA-C Not available Not available Not available Lab None recorded. Referral None recorded. Procedures None recorded. Surgeries None recorded. Imaging XR, thoracic spine, 3 view - new eval thoracic pain rm 3 2024 [facility], [address] [facility], [facility] [address], [place], [address], 07/15/2025 14:57:28 Medication Orders meloxicam 15 mg tablet 2024 025 [facility], [address] [place] [address], [place], [address], 07/27/2025 05:00:52 Patient TargetsNo targets recorded. Patient Instructions Encounter Date Encounter Id Patient Instructions Last Modified By Organization Details Last Modified Time 07/06/2025 [id number] healthy upper back: exercises [email or web address] Not available 07/06/2025 09:40:01 Reason for Referral None Reported. Results Created Date Observation Date Name Description Value Unit Range Abnormal Flag Note LastModifiedBy Organization Detail LastModifiedTime 07/06/20 25 07/06/2025 XR, thora cic spine , 3 view http:/ [email or web address] ?Encry pted=s hAaTro YD8dLq bEUv6g %2BXZw aYqtaq 0bqfl% 2Fg9IQ a4ajBk vP9nXo QUaueC m3YtLR FvZlgJ JJ8mAn HZtai3 3h8658 AC0KlY 3WGWKS vKiQtr MwF INTERFACE [facility] Office [address] [facility] [address], [place], [address], 07/06/2025 09:17:36 07/06/20 25 07/06/2025 XR, thora cic spine , 3 view http:/ [email or web address] ?Encry pted=s hAaTro YD8dLq bEUv6g %2BXZw aYqtaq 0bqfl% 2Fg9IQ a4ajBk vP9nXo QUaueC m3YtLR FvZlgJ JJ8mAn HZtai3 4r6520 AC0KlY 3WGWKS vKiQtr MwF INTERFACE [facility] [address] [facility] [address], [place], [address], 07/06/2025 09:17:38 Result Notes Documentation Provider Name and Address Organization Details Recorded Time Xr, Thoracic Spine, 3 View : [email or web address]? Encrypted=zzUvRwsQX1vVjzX Uv6g%6EEHubZbujv0muey%2Fg 0SLl2pzEsrN9rZzSUxynZu2Cr YBYgDxhFKB5uZzDNnrk41i033 5FL3GlE5DASSQqKeHkfXwG Not Available [facility] 07/06/2025 09:17: 37 Xr, Thoracic Spine, 3 View : [email or web address]? Encrypted=anVnGdtFF9fIjmE Uv6g%5REDljCqilr4gmqr%2Fg 2ZTb5qdMfoW3kRfAIkolQa0Pj VFKaXylDLQ7cUuPWwsb37o394 8JH1YkG6WLOXXzSqJedSqH Not Available [facility] 07/06/2025 09:17: 39 Problems Name Problem SNOMED Code Status Onset Date Resolution Date Notes Provider Name and Address Organization Details Recorded Time Thoracic back pain 334186973 Active 025 Vupen'HEUREUX [facility] 09:06:01 Problem Notes None recorded. Medical Equipment None Reported. Allergies Allergen ID Allergen Name Allergen Category Reaction Reaction Severity Criticality Documentation Date Start Date Code Code System Note Provider Name and Address Organization Details Recorded Time 762870 lactose food,medi cation Not available Not available Not available 07/06/20252018 6211 RxNorm Not Available neri [employer] - prod 08:42:38 875909 metformin medicatio n Not available Not available Not available 07/06/2025 6809 RxNorm Not Available neri [employer] - prod 08:42:38 160724 latex environme nt,medica tion Not available Not available Not available 07/06/2025 72716 91 RxNorm KYLAHCAM Galaviz'CONY [facility] 09:04:32 951162 empaglifl ozin medicatio n vomiting moderate high 07/21/20252024 45962 53 RxNorm Not Available [place] [employer] External [employer] - prod 5 15:13:37 Medications Name Sig Start Date Stop Date Status Note LastModified by Organization Details LastModified Time atorvastati n 40 mg tablet TAKE 1 TABLET BY MOUTH ONCE DAILY active Not Available Not Available No t Available meloxicam 15 mg tablet Take 1 tablet every day by oral route after meal(s) for 14 days. 07/27 completed Not Available Not Available Not Available FreeStyle Lancets 28 gauge USE 1 LANCET TO CHECK GLUCOSE THREE TIMES DAILY active Not Available Not Available No t Available metformin 850 mg tablet TAKE 1 TABLET BY MOUTH TWICE DAILY active Not Available Not Available No t Available lisinopril 5 mg tablet TAKE 1 TABLET BY MOUTH ONCE DAILY active Not Available Not Available No t Available glipizide 5 mg tablet TAKE 2 TABLETS BY MOUTH IN THE MORNING AND 1 IN THE EVENING WITH MEALS active Not Available Not Available No t Available FreeStyle Lite Strips USE 1 STRIP TO CHECK GLUCOSE UP TO THREE TIMES DAILY DIRECTED active Not Available Not Available No t Available Trulicity 1.5 mg/0.5 mL subcutaneou s pen injector INJECT 1.5 MG SUBCUTANE OUSLY ONCE A WEEK active Not Available Not Available No t Available Trulicity 0.75 mg/0.5 mL subcutaneou s pen injector INJECT 0.75 MG SUBCUTANE OUSLY ONCE A WEEK active Not Available Not Available No t Available Vitals Date Recorded Body height Body mass index (BMI) Body weight Provider Name and Address Organization Details Last Updated DateTime 07/06/2025 167.64 cm 31.3 kg/m2 63538.92 g PRABHAKAR SANCHEZ [facility] 07/06/2025 09:03:56 Social History Question Answer Notes LastModified by [employer] Details LastModified Time Tobacco Smoking Status Never Smoker PRABHAKAR SANCHEZ [facility] 07/06/2025 09:05:14 Have You Ever Been Counseled For Unhealthy Alcohol Use? No Information not available 07/06/2025 What Is Your Relationship Status? Single Information not available 07/06/2025 Sex: Unknown Functional Status Question Answer Note LastModified by [employer] Details LastModified Time How many times per week do you consume alcohol? Less than 1 time per week Information not available 07/06/2025 Do you use any illicit or recreational drugs? No Information not available 07/06/2025 Do you or have you ever used any other forms of tobacco or nicotine? No Information not available 07/06/2025 What is your level of alcohol consumption? Occasional Information not available 07/06/2025 Mental Status None recorded. Family History Nothing Reported. Medical History Condition Response Allergies/Hayfever N Coronary Artery Disease N Breathing or lung disorders N Anxiety/Depression N Emphysema N Nerve Disorders N Thyroid Problems N COPD N Pacemaker N Kidney/Bladder Problems N Anemia N Vascular Disease N Heart Trouble N Heart Attack ([place]) N Gastrointestinal Disease N Cholesterol N Diabetes Y Autoimmune disease N Inflammatory Joint disease N Bleeding Disorder N Orthotics N Seizures/Epilepsy N Arthritis N Blood Clot N AIDS/HIV N Congestive Heart Failure (CHF) N Acid Reflux (GERD) N Cancer N Stroke N Asthma N Circulation Problems N Peripheral Vascular Disease N Sleep Apnea N Hepatitis N Heart Disease N Rheumatoid Arthritis N Pulmonary Embolism N Arrhythmia N Headaches N Fibromyalgia N Hypertension Y Osteoporosis N Past Encounters Encounter ID Performer Location Encounter Start Date Encounter Closed Date Diagnosis/Indication Diagnosis SNOMED-CT Code Diagnosis ICD10 Code Diagnosis IMO Codes Diagnosis Note [id number] Edgardo Parnell PA-C [place] [address], [place] [address] 07/06/2025 08:42:19 07/15/2025 14:57:27 Thoracic back pain 944337701 M54.6 59177810 Strain of thoracic region 90679430 S29.012A 63530424 Health Concerns Section Related Observation LastModified by Organization Detai ls LastModified Time None Recorded Concern Status LastModified by Organization Details LastModified Time None Recorded Payers Encounter Date Sequence Insurance Name Policy Number Policy Olivares Covered Member ID Olivares Member ID Guarantor Name 07/06/2025 1 [facility] [employer] - HEALTH NET PLAN (MEDICAID HMO) FREDRICK Disla [id number] Candido Disla
--- OUTSIDE RECORDS SUMMARY | 2025-07-29 08:11 | XMS_ITS | Data Portability ---
Author Organization [facility], [place] Rapp PT Address [address] [place] [address] Care Team Providers Care Thread Tool Grinder Set Up Operator Name Role Phone OLEGARIO CASTELLANOS Director Of Home Health Services Assessment Encounter Date Assessment Date Assessment LastModified [...] intact. X-rays ordered, obtained and reviewed at [facility]: 2 views of the thoracic spine [...] or to follow up sooner if needed. Not available 07/06/2025 12:38:09 Plan of Treatment Reminders Order Date Submit Date Provider Last Modified By Organization Details Last Modified Time Details Appointments NEW PATIENT 15 2025 01:45P Adriana Kemp PA-C Not available Not available Not available Lab None recorded. Referral None recorded. Procedures None recorded. Surgeries None recorded. Imaging XR, thoracic spine, 3 view - new eval thoracic pain rm 3 2024 025 [facility] Office, [address] [facility] [address], [place], [address], 07/15/2025 14:57:28 Medication Orders meloxicam 15 mg tablet 2024 025 [facility], [address] [place] [address], [place], [address], 07/27/2025 05:00:52 Patient TargetsNo targets recorded. Patient Instructions Encounter Date Encounter Id Patient Instructions Last Modified By Organization Details Last Modified Time 07/06/2025 [id number] healthy upper back: exercises [email or web address] Not available 07/06/2025 09:40:01 Reason for Referral None Reported. Results Created Date Observation Date Name Description Value Unit Range Abnormal Flag Note LastModifiedBy Organization Detail LastModifiedTime 07/06/2007/06/2025 XR, thora cic spine , 3 view http:/ [email or web address] ?Encry pted=s hAaTro YD8dLq bEUv6g %2BXZw aYqtaq 0bqfl% 2Fg9IQ a4ajBk vP9nXo QUaueC m3YtLR FvZlgJ JJ8mAn HZtai3 3t5219 AC0KlY 3WGWKS vKiQtr MwF INTERFACE [facility] [address] [facility] [address], [place], [address], 07/06/2025 09:17:36 07/06/2007/06/2025 XR, thora cic spine , 3 view http:/ [email or web address] ?Encry pted=s hAaTro YD8dLq bEUv6g %2BXZw aYqtaq 0bqfl% 2Fg9IQ a4ajBk vP9nXo QUaueC m3YtLR FvZlgJ JJ8mAn HZtai3 2h4692 AC0KlY 3WGWKS vKiQtr MwF INTERFACE [facility] [address] [address], [place], [address], 07/06/2025 09:17:38 Result Notes Documentation Provider Name and Address Organization Details Recorded Time Xr, Thoracic Spine, 3 View : [email or web address]? Encrypted=nhQjPntUG2kPvtY Uv6g%4MWMmaMzwjl1wrqc%2Fg 1JXn8pnZcwU7lDuLYhyxHe9Ni JFNoRrsIYC6dNaNQufb48e372 8SX9FyQ4MCQBMnUfUfbDpI Not Available [facility] 07/06/2025 09:17: 37 Xr, Thoracic Spine, 3 View : [email or web address]? Encrypted=akYxUziLD8mHvxW Uv6g%5MNSorCytal3oacd%2Fg 4DKj0fpTbiW6mTkWXkjpKg2Fp QDBfVykAGE4xSlRBmaq20s876 7RC7LcB6SBXFVaDiWfmJwI Not Available [facility] 07/06/2025 09:17: 39 Problems Name Problem SNOMED Code Status Onset Date Resolution Date Notes Provider Name and Address Organization Details Recorded Time Thoracic back pain 438211874 Active 025 [employer] L'HEUREUX annelise [facility] 09:06:01 Problem Notes None recorded. Medical Equipment None Reported. Allergies Allergen ID Allergen Name Allergen Category Reaction Reaction Severity Criticality Documentation Date Start Date Code Code System Note Provider Name and Address Organization Details Recorded Time 506229 lactose food,medi cation Not available Not available Not available 07/06/20252018 6211 RxNorm Not Available neri [employer] - prod 08:42:38 849857 metformin medicatio n Not available Not available Not available 07/06/2025 6809 RxNorm Not Available [place] [employer] - prod 08:42:38 366526 latex environme nt,medica tion Not available Not available Not available 07/06/2025 38421 91 RxNorm PANFILO Galaviz'CONY castelan [facility] 09:04:32 698562 empaglifl ozin medicatio n vomiting moderate high 07/21/20252024 44397 53 RxNorm Not Available neri [employer] - prod 5 15:13:37 Medications [...] Updated DateTime 07/06/2025 167.64 cm 31.3 kg/m2 89782.92 g PRABHAKAR Galaviz'CONY [facility] 07/06/2025 09:03:56 Social History Question Answer Notes LastModified by [employer] Details LastModified Time Tobacco Smoking Status Never Smoker PRABHAKAR L'HEURBEENA [facility] 07/06/2025 09:05:14 Have You Ever Been Counseled For Unhealthy Alcohol Use? No Information not available 07/06/2025 What Is Your Relationship Status? Single Information not available 07/06/2025 Sex: Unknown Functional Status Question Answer Note LastModified by [employer] Details LastModified Time How many times per [...] Disease N Heart Trouble N Heart Attack ([place]) N Gastrointestinal Disease N Cholesterol N Diabetes [...] ICD10 Code Diagnosis IMO Codes Diagnosis Note [id number] Edgardo Parnell PA-C [place] - [place] [address], [place] [address] 07/06/2025 08:42:19 07/15/2025 14:57:27 Thoracic back pain 541288712 M54.6 22863088 Strain of thoracic region 56678936 S29.012A 34517724 Health Concerns Section Related Observation LastModified by Organization Detai ls LastModified Time None Recorded Concern Status LastModified by Organization Details LastModified Time None Recorded Advance Directives Directive None Recorded Payers Insurance Date Sequence Insurance Name Policy Number Policy Olivares Covered Member ID Olivares Member ID Guarantor Name 07/15/2025 1 [facility] [employer] - HEALTH NET PLAN (MEDICAID HMO) FREDRICK Disla [id number] Candido Disla 07/26/2025 [facility] Candido Disla
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
--- OUTSIDE RECORDS SUMMARY | 2025-07-29 08:12 | XMS_ITS | Clinical Summary ---
[facility] Organization [facility] [address] Address [address] [place] [address] Phone Care Team Providers Care Retort Feeder Ground Bone Name Role Phone Anisa Hazel MD Primary [...] Medical History Date Comments Hypertension Diabetes mellitus ([facility] V24, [facility] V28) Social History Tobacco Use Types Packs/Day [...] on file Sexual Orientation Not on file Last Filed Vital Signs Vital Sign Reading [...] Years) (1 of 2 - PCV) 2002 HPV Vaccines (1 - 3-dose SCDM series) 2010 Cholesterol Screening (Lipid Panel) 07/14/2022 HIV Screening 07/14/2022 Hepatitis C Screening 07/14/2022 Social Influencers of Health Screening 07/14/2022 Depression Screening 08/12/2024 COVID-19 Vaccine (3 - season) 2025 08/09/2021, 12/28/2020 Influenza Vaccine (#1) 2025 2, 04/08/2021, 05/13/2018, Additional history exists DTaP,Tdap,and Td Vaccines (3 - Td or Tdap) 08/17/2027 08/17/2017, 07/16/2012 RSV Immunization Adult Patients (1 - 1-dose 75+ series) 2058 Hepatitis B Vaccines Completed 12/12/2012, 07/16/2012, 06/16/2012 [...] complete this topic Insurance [employer] Care Teams Retort Feeder Ground Bone Relationship Specialty Start Date End Date Anisa Hazel MD PCP - General Internal Medicine 04/16/17
--- OUTSIDE RECORDS SUMMARY | 2025-07-29 08:12 | XMS_ITS | Clinical Summary ---
Author Organization [facility] Address [address] [place] [address] Care Team Providers Care Athletic Director Name Role Phone Unknown Primary Care Provider [phone] Allergies No known active allergies Medications * [...] - 19+ 3-dose series) 2002 Influenza Vaccine 03/12/2025 05/13/2018 COVID-19 Vaccine (2024-2 6 season) 2025 DTaP/Tdap/Td Vaccines (2 - T d or Tdap) 08/17/2027 08/17/2017 HPV Vaccines (No Doses Required) Completed Pneumococcal Vaccine: Pediat chuyita (0-5 Years) and At-Risk Patients (6 to 49 Years) Aged Out No longer eligible b ased on patient's age to complete this topic Insurance MEDICAID OUT [place] [facility] (AUTO/LIABILITY) Care Teams Athletic Director Relationship Specialty Start Date End Date Unknown Unknow Provider Address PCP - General 05/23/20
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
[2025-07-29 08:29] VITALS: BP 100/78; PULSE 89; RESP 16; TEMP 36.4; O2SAT 97; BMI 31.8
== END 2025-07-29 09:30 | disposition home or self-care (01) ==
LOC: HO.HMCFM 08:08
PROVIDERS: PCP Physician Assistant Medical; Visit Provider Physician Assistant Medical
DX: Z23 Encounter for immunization (principal)

== ENCOUNTER 2025-08-10 08:43 | Outpatient (AMB) | payer OTHER, SELFPAY ==
--- NOTE | 2025-08-10 09:07 | AM.OFFVISNUR ---
Intake Visit Reasons: B12 shot Allergies empagliflozin (From [employer]) Adverse Reaction (Intermediate, Verified 07/29/25 08:26) Vomiting Office Meds cyanocobalamin (vitamin B-12) 1,000 mcg/mL injection solution Performing Provider: LORETO Lou Performing Location: [facility] [place] [facility] Administered by: Hannah Singh RN on 08/10/25 09:07 Dose Route Admin Location Dispensed Lot Number Expiration Date [facility] F[employer] Installer [employer]per 1,000 mcg IM Left Deltoid 1 mL [id number] 07/11/26 2946-0304-05 [facility] Total Dispensed Waste 1 mL 0 % Assessment & Plan Assessment & Plan Orders: Orders AMB Vitamin B12 Injection Patient Supplied Today E53.8 - Deficiency of other specified B group vitamins Coding
--- OUTSIDE RECORDS SUMMARY | 2025-08-10 10:32 | XMS_ITS | Data Portability ---
Author Organization [facility], EILEEN Pitts Dionte PT Address [address] [place] [address] Support Name Relationship Address Phone CANDIDO DISLA self [address] [place] [address] Assessment Encounter Date Assessment Date Assessment LastModified [...] intact. X-rays ordered, obtained and reviewed at [facility]: 2 views of the thoracic [...] or to follow up sooner if needed. [email or web address] Not available 07/06/2025 12:38:09 Plan of Treatment Reminders Order Date Submit Date Provider Name Organization Details Last Modified By Last Modified Time Details Appointments NEW PATIE NT 15 2025 08:30A M Danielle Kemp PA-C Not available Not available Not available Lab None recor ded. Referral None recor ded. Procedures None recor ded. Surgeries None recor ded. Imaging XR, thora cic spine , 3 view 2024 09:09: 48 025 [facility]ell [facility] [address],[facility] [address], [place], [address], [facility] 07/15/2025 14:57:28 MedicationOrder s melox icam 15 mg table t 2024 09:38: 03 [facility] [address] [place] [address], [place], [address], Ph [phone] Not Available Not available 07/27/2025 05:00:52 Take 1 tablet every day by oral route after meal(s) for 14 days. VaccineOrders None recor ded. Patient TargetsNo targets recorded. Patient Instructions Encounter Date Encounter Id Patient Instructions Last Modified By Organization Details Last Modified Time 07/06/2025 [id number] healthy upper back: exercises Edgardo Parnell PA-C Not available 07/06/2025 09:40:01 Reason for Referral None Reported. Results Created Date Observation Date Name Description Value Unit Range Abnormal Flag Specimen Type Note LastModifiedBy Organization Detail LastModifiedTime 07/06/2025 07/06/2025 T-spine 3 view [email or web address]=hpGnCurAL2lFtwARx4z%2RJCusWoxsa4sqvo%2Fa0JFg4 ykInmM7yPxDRohdWg9OrGMRtXzlAUM1oQsYTthf91y2284ZC2MiR2IGVGVrGtItmDrI Not Available [facility] , [address] [facility] [address],[place] [address] , [place] , [address], , 07/06/2025 09:17:37 07/06/2025 07/06/2025 T-spine 3 view [email or web address]=znJwPbuDQ5kQqmBMn8i%7SOZcoPprad4wvdj%4Cq3AOh1 nqZxtE7hDzVWodxHy3FeFIJdMjkLUU8bAeHVbok35g4185QU3GjJ3NYVNIfDoTjiDiJ Not Available [facility] , [address] [facility],[place] [address] , [place] , [address], , 07/06/2025 09:17:39 Result Notes Documentation Provider Name and Address Organization Details Recorded Time Xr, Thoracic Spine, 3 View : [email or web address] Encrypted=duUxJvlTU3rZxcI Uv6g%7WVUgcVpnel6wdfr%2Fg 6HHf8ksXvzE5aFmHIwwaPo4Bh BLLeCkmTWS2eNhGZglb03l852 9LH3SqT9WXHAPnDxJwcXtR Not Available [employer] 07/06/2025 09:17: 37 Xr, Thoracic Spine, 3 View : [email or web address] Encrypted=roIlBcbJP8nQjzY Uv6g%2UFHvjMdmlw7owbc%2Fg 0MFj8mfVslA8iDwNSpdtYg2Up BSVdFjaMBN2qMcTQovw19w363 5FY3VhR5ADRFAhExCyyFfU Not Available [facility] 07/06/2025 09:17: 39 Problems Name Problem SNOMED Code Status Onset Date Resolution Date Notes Provider Name and Address Organization Details Recorded Time Thoracic back pain 661489583 Active 025 KAYLIA L'HEUREUX annelise [place] - [facility] 09:06:01 Problem Notes None recorded. Medical Equipment None Reported. Allergies Allergen ID Allergen Name Allergen Category Reaction Reaction Severity Criticality Documentation Date Start Date Code Code System Note Provider Name and Address Organization Details Recorded Time 984152 lactose food,medi cation Not available Not available Not available 07/06/20252018 6211 RxNorm Not Available neri - [employer] - prod 08:42:38 437780 metformin medicatio n Not available Not available Not available 07/06/2025 6809 RxNorm Not Available neri [employer] - prod 08:42:38 435423 latex environme nt,medica tion Not available Not available Not available 07/06/2025 08373 91 RxNorm YOVANIYLIA L'HEUREUX [place] [facility] 09:04:32 325329 empaglifl ozin medicatio n vomiting moderate high 07/21/20252024 10177 53 RxNorm Not Available neri [employer] - prod 15:13:37 Medications Name Authored On Sig Start Date Stop Date Status Note Indication Fill Status Repeat Number Dispense Quantity LastModified by Organization Details LastModified Time Truli city 0.75 mg/0. 5 mL subcu taneo us pen injec tor 5 08:39:[address] 0.75 MG SUBC UTAN EOUS LY ONCE A WEEK active Not Available Not availab le 0 Not Available Not Available neri - [employer] - prod 07/06/2025 08:39:24 atorv astat in 40 mg table t 5 08:39:25 TAKE 1 TABL ET BY MOUT H ONCE MARIAJOSE Y active Not Available Not availab le 0 Not Available Not Available neri - [employer] - prod 07/06/2025 08:39:25 FreeS tyle Tariq ts 28 gauge 5 08:39:25 USE 1 LANC ET TO CHEC K GLUC OSE THRE E TIME S MARIAJOSE Y active Not Available Not availab le 0 Not Available Not Available neri - [employer] - prod 07/06/2025 08:39:25 FreeS tyle Lite Strip s 5 08:39:25 USE 1 STRI P TO CHEC K GLUC OSE UP TO THRE E TIME S MARIAJOSE Y DIRE CTED active Not Available Not availab le 0 Not Available Not Available neri - [employer] - prod 07/06/2025 08:39:25 glipi zide 5 mg table t 5 08:39:25 TAKE 2 TABL ETS BY MOUT H IN THE MORN ING AND 1 IN THE EVEN ING WITH MEAL S active Not Available Not availab le 0 Not Available Not Available neri - [employer] - prod 07/06/2025 08:39:25 lisin opril 5 mg table t 5 08:39:25 TAKE 1 TABL ET BY MOUT H ONCE MARIAJOSE Y active Not Available Not availab le 0 Not Available Not Available neri - [employer] - prod 07/06/2025 08:39:25 metfo rmin 850 mg table t 5 08:39:25 TAKE 1 TABL ET BY MOUT H TWIC E MARIAJOSE Y active Not Available Not availab le 0 Not Available Not Available neri - [employer] - prod 07/06/2025 08:39:25 Truli city 1.5 mg/0. 5 mL subcu taneo us pen injec tor [address] 08:39:[address] 1.5 MG SUBC UTAN EOUS LY ONCE A WEEK active Not Available Not availab le 0 Not Available Not Available neri - External Data [employer] - prod 07/06/2025 08:39:25 melox icam 15 mg table t 09:38:03 Take 1 tabl et ever y day by oral rout e afte r meal (s) for 14 days . 07/27 aborted Strain of thoracic region Not availab le 0 Not Available Not Available [facility] 07/27/2025 05:00:52 Vitals Date Recorded Body height Body mass index (BMI) Body weight Provider Name and Address Organization Details Last Updated DateTime 07/06/2025 167.64 cm 31.3 kg/m2 45718.92 g KAYLIA L'HEUREUX [place] - [facility] 07/06/2025 09:03:56 Social History Question Answer Notes LastModified by Organizat ion Details LastModified Time Tobacco Smoking Status Never Smoker KAYLIA L[facility]HEUREUX [place] [facility] 07/06/2025 09:05:14 What Is Your Level Of Alcohol Consumption? Occasional KAYLIA L'HEUREUX [place] [facility] 07/06/2025 09:05:14 Have you ever been counseled for unhealthy alcohol use? No KAYLIA L'HEUREUX [place] [facility] 07/06/2025 09:05:14 What is your relationship status? Single KAYLIA L'HEUREUX [place] [facility] 07/06/2025 09:05:17 Social History Observation Description Date Observed Sex Unknown 07/19/2025 Legal Sex Male Status Not (finding) 08/10/20 No social history survey screeners recorded No social history SDOH screeners recorded Functional Status Question Answer Note LastModified by Organizat ion Details LastModified Time Do you or have you ever used any other forms of tobacco or nicotine? No KAYLIA L'HEUREUX [place] - [facility] 07/06/2025 09:05:14 What is your level of alcohol consumption? Occasional KAYLIA L'HEUREUX [place] - [facility] 07/06/2025 09:05:14 How many times per week do you consume alcohol? Less than 1 time per week KAYLIA L'HEUREUX [place] - [facility] 07/06/2025 09:05:14 Do you use any illicit or recreational drugs? No KAYLIA L'HEUREUX [place] - [facility] 07/06/2025 09:05:14 No Functional Screening assessment recorded No Functional SDOH screeners recorded Mental Status None recorded. No Mental Screening assessment recorded No Mental SDOH screeners recorded Family History Nothing Reported. Medical History Condition Response Allergies/Hayfever N Coronary Artery Disease N Anxiety/Depression N Breathing or lung disorders N Emphysema N Nerve Disorders N Thyroid Problems N COPD N Pacemaker N Anemia N Kidney/Bladder Problems N Vascular Disease N Heart Trouble N Heart Attack ([place]) N Gastrointestinal Disease N Cholesterol N Diabetes Y Autoimmune disease N Inflammatory Joint disease N Bleeding Disorder N Orthotics N Arthritis N Seizures/Epilepsy N Blood Clot N AIDS/HIV N Congestive Heart Failure (CHF) N Acid Reflux (GERD) N Cancer N Stroke N Asthma N Circulation Problems N Peripheral Vascular Disease N Sleep Apnea N Hepatitis N Heart Disease N Rheumatoid Arthritis N Arrhythmia N Pulmonary Embolism N Headaches N Fibromyalgia N Hypertension Y Osteoporosis N Past Encounters Encounter ID Performer Location Encounter Start Date Encounter Closed Date Diagnosis/Indication Diagnosis SNOMED-CT Code Diagnosis ICD10 Code Diagnosis IMO Codes Diagnosis Note [id number] Edgardo Parnell PA-C [place] - [place] [address] [place] [address] 07/06/2025 08:42:19 07/15/2025 14:57:27 Thoracic back pain 284665607 M54.6 07202534 Strain of thoracic region 73929793 S29.012A 99192844 Health Concerns Section Related Observation LastModified by Organization Detai ls LastModified Time None Recorded Concern Status LastModified by Organization Details LastModified Time None Recorded SDOH Concern Status LastModified by Organization Detnargis ls LastModified Time None Recorded Advance Directives Directive None Recorded Payers Insurance Date Sequence Insurance Name Policy Number Policy Olivares Covered Member ID [employer] Member ID Guarantor Name 07/15/2025 1 [facility] - HEALTH NET PLAN (MEDICAID HMO) FREDRICK Disla [id number] Candido Disla 07/26/2025 NANCIE Dominguez [facility] Candido Disla Care Team Name Role Member ID Specialty Address Phone None Recorded.
--- OUTSIDE RECORDS SUMMARY | 2025-08-10 10:32 | XMS_ITS | Continuity of Care Document ---
Author Organization [facility] - [facility], [place] - [place] Address [address] [place] [address] Support Name Relationship Address Phone CANDIDO DISLA self [address] [place] [address] Assessment Encounter Date Assessment Date Assessment LastModified [...] intact. X-rays ordered, obtained and reviewed at [facility]: 2 views of the thoracic spine [...] or to follow up sooner if needed. [email or web address] Not available 07/06/2025 12:38:09 Plan of Treatment [...] 2024 09:09: 48 025 [facility] [address],[facility] [address], [place], [address], [facility] 07/15/2025 14:57:28 MedicationOrder s melox icam 15 mg table t 2024 09:38: 03 [facility] [address] [place] [address], [address], Ph [phone] Not Available Not available 07/27/2025 05:00:52 Take 1 tablet every day by oral route after meal(s) for 14 days. VaccineOrders None recor ded. Patient TargetsNo targets recorded. Patient Instructions Encounter Date Encounter Id Patient Instructions Last Modified By Organization Details Last Modified Time 07/06/2025 [id number] healthy upper back: exercises Edgardo Parnell PA-C Not available 07/06/2025 09:40:01 Reason for Referral None Reported. Results Created Date Observation Date Name Description Value Unit Range Abnormal Flag Specimen Type Note LastModifiedBy Organization Detail LastModifiedTime 07/06/2025 07/06/2025 T-spine 3 view [email or web address]=amAoYspUG6vMpcCYl2q%9MFSyyPqvof7klou%4Hz6CKp9 fwHnqG4gYbCIhwhWf4IsFEYzXdcWBQ6vEmDGtrs10e7313QR0OkF6YJNFVnClFqvMlC Not Available [facility] , [address] [facility] [address] [address] , [place], [place] , [facility], , 07/06/2025 09:17:37 07/06/2025 07/06/2025 T-spine 3 view [email or web address]=eeBcLwcCD9sNbpBJf3x%5AXPwpMrbaq1jeal%5Qx0VRa5 huCvrV7qJrLHlnyMm7VhRAKnJxxYQV9aHnQZijy01j7823OX5JvK7RSCXXhJlCnhGfV Not Available [facility] , [address] [facility] [address] , [place] , [address], , 07/06/2025 09:17:39 Result Notes Documentation Provider Name and Address Organization Details Recorded Time Xr, Thoracic Spine, 3 View : [email or web address] Encrypted=pcAkKwwDZ4iKqeM Uv6g%7YDQuoSoeqa8bjhp%2Fg 8TAw6ouZljL2jJpKMgimLx4Al QLNwXcaQHR2wIyNIntc14y057 3MH6ElK9IEHMFnHxIfqZkF Not Available [employer] 07/06/2025 09:17: 37 Xr, Thoracic Spine, 3 View : [email or web address] Encrypted=kwUdYxxSE0uHyaK Uv6g%6DQMyiYaybp5bhpd%2Fg 1SZd7ygSzeR6fEuAUkyvTa7Jh UMHwTqrHIC4vXqIVuzw61r282 0SR2PbS8ULVLUjJlBivDyX Not Available [facility] 07/06/2025 09:17: 39 Problems Name Problem SNOMED Code Status Onset Date Resolution Date Notes Provider Name and Address Organization Details Recorded Time Thoracic back pain 679600687 Active 025 KAYLIA L'HEUREUX annelise [facility] 09:06:01 Problem Notes None recorded. Medical Equipment None Reported. Allergies Allergen ID Allergen Name Allergen Category Reaction Reaction Severity Criticality Documentation Date Start Date Code Code System Note Provider Name and Address Organization Details Recorded Time 847129 lactose food,medi cation Not available Not available Not available 07/06/20252018 6211 RxNorm Not Available neri - [employer] - prod 08:42:38 565265 metformin medicatio n Not available Not available Not available 07/06/2025 6809 RxNorm Not Available neri [employer] - prod 08:42:38 227971 latex environme nt,medica tion Not available Not available Not available 07/06/2025 92166 91 RxNorm KAYLIA L'HEUREUX [place] [facility] 09:04:32 085277 empaglifl ozin medicatio n vomiting moderate high 07/21/20252024 84609 53 RxNorm Not Available neri [employer] - prod 15:13:37 Medications Name [...] availab le 0 Not Available Not Available [facility] 07/27/2025 05:00:52 Vitals Date Recorded Body height Body mass index (BMI) Body weight Provider Name and Address Organization Details Last Updated DateTime 07/06/2025 167.64 cm 31.3 kg/m2 27731.92 g KAYLIA L'HEUREUX [place] - [facility] 07/06/2025 09:03:56 Social History Question Answer Notes LastModified by Organizat ion Details LastModified Time Tobacco Smoking Status Never Smoker KAYLIA L'HEUREUX [place] - [facility] 07/06/2025 09:05:14 What Is Your Level Of Alcohol Consumption? Occasional KAYLIA L'HEUREUX [place] - [facility] 07/06/2025 09:05:14 Have you ever been counseled for unhealthy alcohol use? No KAYLIA L'HEUREUX [place] [facility] 07/06/2025 09:05:14 What is your relationship status? Single KAYLIA L'HEUREUX [place] - [facility] 07/06/2025 09:05:17 Social History Observation Description Date Observed Sex Unknown 07/06/2025 Legal Sex Male Status Not (finding) 08/10/20 No social history survey screeners recorded No social history SDOH screeners recorded Functional Status Question Answer Note LastModified by Organizat ion Details LastModified Time Do you or have you ever used any other forms of tobacco or nicotine? No KAYLIA L'HEUREUX [place] - [facility] 07/06/2025 09:05:14 What is your level of alcohol consumption? Occasional KAYLIA L'HEUREUX [place] - [facility] 07/06/2025 09:05:14 How many times per week do you consume alcohol? Less than 1 time per week KAYLIA L'HEUREUX [facility] 07/06/2025 09:05:14 Do you use any illicit or recreational drugs? No PRABHAKAR RodriguezHEUREUX [facility] 07/06/2025 09:05:14 No Functional Screening assessment recorded [...] Disease N Heart Trouble N Heart Attack ([place]) N Gastrointestinal Disease N Cholesterol N Diabetes Y Autoimmune disease N Bleeding Disorder N Inflammatory Joint disease N Orthotics N Arthritis N Seizures/Epilepsy N [...] ICD10 Code Diagnosis IMO Codes Diagnosis Note [id number] Edgardo Parnell PA-C [place] - [place] [address] [place] [address] 07/06/2025 08:42:19 07/15/2025 14:57:27 Thoracic back pain 499471651 M54.6 77058855 Strain of thoracic region 75648639 S29.012A 37816300 Health Concerns Section Related Observation LastModified by Organization Detai ls LastModified Time None Recorded Concern Status LastModified by Organization Details LastModified Time None Recorded SDOH Concern Status LastModified by Organization Detnargis ls LastModified Time None Recorded Payers Encounter Date Sequence Insurance Name Policy Number Policy Olivares Covered Member ID Olivares Member ID Guarantor Name 07/06/2025 1 [facility] - HEALTH NET PLAN (MEDICAID HMO) FREDRICK Disla [id number] Candido Disla Care Team Name Role Member ID Specialty Address Phone None Recorded.
--- OUTSIDE RECORDS SUMMARY | 2025-08-10 10:33 | XMS_ITS | Clinical Summary ---
Author Organization [facility] [address] Address [address] [place] [address] Phone Care Team Providers Care Explosive Ordnance Handler Name Role Phone Anisa Hazel MD Primary [...] Medical History Date Comments Hypertension Diabetes mellitus ([facility] V24, [facility] V28) Social History Tobacco Use [...] complete this topic Insurance [employer] Care Teams Explosive Ordnance Handler Relationship Specialty Start Date End Date Anisa Hazel MD PCP - General Internal Medicine 04/16/17
--- OUTSIDE RECORDS SUMMARY | 2025-08-10 10:33 | XMS_ITS | Clinical Summary ---
Author Organization [facility] Address [address] [place] [address] Care Team Providers Care Temporary Staff Accountant Name Role Phone Unknown Primary Care Provider [phone] Allergies No known active allergies Medications * [...] this topic Insurance MEDICAID OUT OF STATE [facility] TPL (AUTO/LIABILITY) Care Teams Temporary Staff Accountant Relationship Specialty Start Date End Date Unknown Unknow Provider Address PCP - General 05/23/20
== END 2025-08-10 16:53 | disposition home or self-care (01) ==
PROVIDERS: PCP Physician Assistant Medical; Visit Provider Physician Assistant Medical
DX: E53.8 Deficiency of other specified B group vitamins (principal)

== ENCOUNTER → 2025-08-10 08:43 | Outpatient (BNVA) | payer SELFPAY | PROVIDERS: PCP Physician Assistant Medical; Visit Provider Physician Assistant Medical | DX: E53.8 Deficiency of other specified B group vitamins (principal) | CPT/HCPCS: 96372; J3420 ==